=== PATIENT | male | born 2000 | race Caucasian/White ===

== ENCOUNTER 2018-08-27 07:25 | Emergency (ER) | payer MEDICAID ==
[2018-08-27 07:25] VITALS: BMI 28.4
--- NOTE | 2018-08-27 07:45 | C.PDOC ---
History Of Present Illness 18 year old male presents to the ED c/o swelling to his upper lip. Started last night after drinking soda at home. Swelling has not gotten worse since last night. Denies change in voice, SOB or difficulty in swallowing. Patient unsure what may have caused reaction. Time Seen by Provider: 08/27/18 07:32 Chief Complaint (Nursing): Allergic Reaction History Per: Patient History/Exam Limitations: no limitations Onset/Duration Of Symptoms: Hrs Current Symptoms Are (Timing): Still Present Possible Cause: Unknown Associated Symptoms: Swelling (lip swelling) Home/EMS Treatment: None Severity: Mild Past Medical History Reviewed: Historical Data, Nursing Documentation, Vital Signs Vital Signs: Last Vital Signs Temp 98.3 F 08/27/18 07:28 Pulse 89 08/27/18 07:28 Resp 18 08/27/18 07:28 BP 124/86 08/27/18 07:28 Pulse Ox 98 08/27/18 07:28 Family History: States: Unknown Family Hx - Social History Hx Tobacco Use: No Hx Alcohol Use: No Hx Substance Use: No - Immunization History Hx Tetanus Toxoid Vaccination: No Hx Influenza Vaccination: No Hx Pneumococcal Vaccination: No Review Of Systems Except As Marked, All Systems Reviewed And Found Negative. Respiratory: Negative for: Shortness of Breath, Wheezing Skin: Positive for: Other (upper lip swelling) Physical Exam - Physical Exam Appears: Well, Non-toxic, No Acute Distress Skin: Normal Color Head: Atraumatic, Normacephalic Eye(s): bilateral: Normal Inspection Ear(s): Bilateral: Normal Nose: Normal Oral Mucosa: Moist Tongue: Normal Appearing Lips: Swelling (upper) Gingiva: Normal Appearing Throat: Normal, No Drooling Neck: Normal Lymphatic: Deferred Chest: Symmetrical Cardiovascular: Rhythm Regular Respiratory: Normal Breath Sounds, No Decreased Breath Sounds, No Accessory Muscle Use Gastrointestinal/Abdominal: Normal Exam, Bowel Sounds, Soft, No Tenderness Rectal: Deferred Back: Normal Inspection ED Course And Treatment O2 Sat by Pulse Oximetry: 98 (RA) Pulse Ox Interpretation: Normal Medical Decision Making Medical Decision Making: Plan: -Decadron Progress/Update: Patient stable for discharge home. Prescribed Presnisone. Advised to follow up with PMD within 2 days. Return to the ED if symptoms progress. Disposition - Disposition Referrals: Shaik Manzo MD [Staff Provider] - Disposition: HOME/ ROUTINE Disposition Time: 07:50 Condition: GOOD Additional Instructions: MAREN TEJADA, thank you for letting us take care of you today. The emergency medical care you received today was directed at your acute symptoms. If you were prescribed any medication, please fill it and take as directed. It may take several days for your symptoms to resolve. Return to the Emergency Department if your symptoms worsen, do not improve, or if you have any other problems. Please contact your doctor or call one of the physicians/clinics you have been referred to that are listed on the Patient Visit Information form that is included in your discharge packet. Bring any paperwork you were given at discharge with you along with any medications you are taking to your follow up visit. Our treatment cannot replace ongoing medical care by a primary care provider outside of the emergency department. Thank you for allowing the [facility] team to be part of your care today. Follow up with your primary care doctor in 1-2 days for re-evaluation and further management. Return to the emergency room if you have any concerns. Prescriptions: predniSONE [Prednisone] 40 mg PO DAILY #6 tab Instructions: Anaphylaxis Forms: [employer] (I[place]ic) - Clinical Impression Clinical Impression: Allergic reaction
[2018-08-27 07:58] VITALS: BP 118/78; PULSE 80; RESP 20; TEMP 98.5
[2018-08-27 08:20] VITALS: O2SAT 98
== END 2018-08-27 08:04 | disposition home or self-care (01) ==
LOC: C.ER 07:25
DX: T78.49XA Other allergy, initial encounter (principal); X58.XXXA Exposure to other specified factors, initial encounter
CPT/HCPCS: 96372; 99284; J1100